=== PATIENT | male | born 1945 ===

== ENCOUNTER 2018-01-04 06:47 | Day surgery (SDC) | payer MEDICARE, OTHER ==
--- NOTE | 2018-01-03 16:41 | Pre-Procedure Note/Attestation ---
Pre-Procedure Note/Attestation Complete Prior to Procedure Planned Procedure: right Procedure Narrative: 1. CATARACT EXTRACTION WITH PHACO AND PC IOL IMPLANTATION, RIGHT EYE. 2. LIMBAL RELAXING INCISION, RIGHT EYE. 3.MALYUGIN RING INSERTION, RIGHT EYE FOR FLOPPY IRIS SYNDROME. 4.COMPLEX CATARACT , RIGHT EYE Indications for Procedure Pre-Operative Diagnosis: 1. CATARACT (AGE RELATED NUCLEAR) ,RIGHT EYE. 2.ASTIGMATISM , RIGHT EYE. 3. FLOPPY IRIS SYNDROME, RIGHT EYE 4. COMPLEX CATARACT , RIGHT EYE. Attestation I attest that I discussed the nature of the procedure; its benefits; risks and complications; and alternatives (and the risks and benefits of such alternatives ), prior to the procedure, with the patient (or the patient's legal cash applications representative). I attest that, if there was a reasonable possibility of needing a blood transfusion, the patient (or the patient's legal cash applications representative) was given the [facility] standardized written summary, pursuant to the Ye Coram Blood Safety Act ([place] Health and Safety Code # 1645, as amended). I attest that I re-evaluated the patient just prior to the surgery and that there has been no change in the patient's H&P, except as documented below: Neftaly Hummel MD January 03, 2018 16:41
[2018-01-04] VITALS (11 sets, daily range): BP systolic 143–150; BP diastolic 76–92
[~2018-01-04] VITALS: Ht 172.7 cm; Wt 88.5 kg
[~2018-01-04 06:47] MED LIST: acetaZOLAMIDE 125mg tab ORAL ONE
[2018-01-04] MEDS ORDERED: Dexamethasone 4mg/ml vial ONE (07:15)
[2018-01-04] MEDS ORDERED: Povidone-Iodine 5% opth solution ONE (07:15)
[2018-01-04] MEDS ORDERED: BSS 15ml BTL ONE (07:15)
[2018-01-04] MEDS ORDERED: EPINEPHrine 1mg/1ml Amp ONE (07:15)
[2018-01-04] MEDS ORDERED: Lidocaine 1% MPF 10mg/ml 5ml ONE (07:15)
[2018-01-04] MEDS ORDERED: BSS 500ml btl ONE (07:15)
[2018-01-04] MEDS ORDERED: Sodium Hyaluronate 10 mg/ml 0.85ml ONE (07:16)
[2018-01-04] MEDS ORDERED: Tropicamide 1% Opth 15ml Soln ONE (07:28)
[2018-01-04] MEDS: Diclofenac Sod 0.1% Op Soln RIGHT EYE SCH ×2 (07:31→07:40)
[2018-01-04] MEDS: Akten 3.5% 1ml Btl RIGHT EYE SCH ×2 (07:31→07:39)
[2018-01-04] MEDS: Phenylephrine 10% Opth Soln 5ml RIGHT EYE SCH ×2 (07:32→07:40)
[2018-01-04] MEDS: Vigamox Opth Soln 3ml RIGHT EYE SCH ×2 (07:32→07:40)
[2018-01-04] MEDS: Tropicamide 1% Opth 15ml Soln RIGHT EYE SCH ×2 (07:32→07:40)
[2018-01-04] MEDS ORDERED: ASPIR 8181 MG ORAL (07:39)
[2018-01-04] MEDS ORDERED: fentaNYL 100 mcg/2 mL IV ONE (07:42)
[2018-01-04] MEDS ORDERED: Midazolam 2mg/2ml Inj ONE (07:42)
[2018-01-04] MEDS ORDERED: Sterile Water Irrig 1000ml IRRIG ONE (08:00)
[2018-01-04] MEDS ORDERED: NS Irrig 1000ml ONE (08:00)
[2018-01-04] MEDS ORDERED: Propofol 200mg/20ml IV ONE (08:00)
[2018-01-04] MEDS ORDERED: LR 1000ml ONE (08:00)
[2018-01-04] MEDS ORDERED: LR 1000ml 1,000 ML IVLG SCH (08:49)
--- NOTE | 2018-01-04 08:49 | Anethesia Preoperative Eval ---
Anesthesia Pre-op PMH/ROS General Date of Evaluation: January 04, 2018 Time of Evaluation: 08:15 Anesthesiologist: Kim ASA Score: ASA 2 Mallampati Score Class I : Soft palate, uvula, fauces, pillars visible Class II: Soft palate, uvula, fauces visible Class III: Soft palate, base of uvula visible Class IV: Only hard plate visible Mallampati Classification: Class II Surgeon: Estephanie Diagnosis: R eye cataract Surgical Procedure: R eye cataract exraction Anesthesia History: none Social History: current smoker Family History: no anesthesia problems Allergies: Coded Allergies: No Known Allergies (Unverified , 01/03/18) Medications: see eMAR Past Medical History Cardiovascular: Reports: HTN; Denies: CAD, [place], valve dz, arrhythmia, other Pulmonary: Reports: COPD - mild; Denies: asthma, TAMMI, other Gastrointestinal/Genitourinary: Reports: GERD; Denies: CRI, ESRD, other Neurologic/Psychiatric: Denies: dementia, CVA, depression/anxiety, TIA, other Endocrine: Denies: DM, hypothyroidism, steroids, other HEENT: Reports: cataract (L), cataract (R); Denies: glaucoma, [place] (L), [place] (R), other Hematology/Immune: Denies: anemia, DVT, bleeding disorder, other Musculoskeletal/Integumentary: Reports: DJD, other - eczema; Denies: OA, RA, DDD, edema PMH Narrative: as above PSxH Narrative: none Anesthesia Pre-op Phys. Exam Physician Exam Last Vital Signs Date Time Temp Pulse Resp B/P (MAP) Pulse Ox O2 Delivery O2 Flow Rate FiO2 01/04/18 07:40 96.9 56 20 149/82 98 Room Air 96.9 Constitutional: NAD Neurologic: CN 2-12 intact Cardiovascular: RRR, no M/R/G Respiratory: CTA Gastrointestinal: S/NT/ND Airway Exam Mallampati Score: Class II MO: full Neck: stiff ROM: limited Teeth: missing Dentures: upper, lower Anesthesia Pre-op A/P Labs see chart Studies Pre-op Studies: EKG - SR Risk Assessment & Plan Assessment: ASA 2 Plan: Shivam Calderon MD January 04, 2018 08:49
[2018-01-04] MEDS ORDERED: fentaNYL 100 mcg/2 mL IV PRN (09:00)
[2018-01-04] MEDS ORDERED: DiphenhydrAMINE 50mg/ml Inj IVP PRN (09:00)
--- NOTE | 2018-01-04 09:17 | Discharge Summary ---
Discharge Summary Discharge Summary Discharge Summary DATE OF ADMISSION: 01/04/2018 DATE OF DISCHARGE: 01/04/2018 REASON FOR HOSPITALIZATION: 1- Cataract right eye 2- Astigmatism, right eye SURGERY PERFORMED: 1- Cataract extraction with phaco and PC IOL implantation, right eye 2- LRI, right eye 3- malyugin ring insertion CONDITION IN THE HOSPITAL:The patient tolerated the surgery without complications. DISCHARGE CONDITION: The patient was stable at discharge. DISCHARGE MEDICATIONS: 1. Vigamox eye drops one drop q.i.d, OD 2. Prednisolone one drop q.i.d, OD 3. Prolensa one drop qd, OD POSTOPERATIVE ORDERS: The patient has to rest at home. No bending, No lifting, No watching Television tonight. POSTOPERATIVE FOLLOW UP: The patient will be followed in my office tomorrow morning at 7 o'clock. Neftaly Hummel MD January 04, 2018 09:17
--- NOTE | 2018-01-04 09:22 | Brief Operative Note ---
Immediate Post Operative Note Operative Note Chief Complaint: Blurry vision, difficulty reading and driving, right eye Pre-op Diagnosis: 1. CATARACT (AGE RELATED NUCLEAR) ,RIGHT EYE. 2.ASTIGMATISM , RIGHT EYE. 3. FLOPPY IRIS SYNDROME, RIGHT EYE 4. COMPLEX CATARACT , RIGHT EYE. Procedure: 1- Cataract extraction with phaco and PC IOL implantation, right eye 2- Limbal relaxing incision ( LR I ), right eye 3- Malyugin ring insertion, complex cataract, right eye. Post-op Diagnosis: same as pre-op Surgeon: Neftaly Hummel MD Drop Man: None Additional Surgeons: None Anesthesiologist: Dr Alvarez Anesthesia: MAC Specimen: none Complications: none Condition: stable Fluids: 500ml Estimated Blood Loss: none Drains: none Implant(s) used?: Yes - Monofocal PC IOL implanted in the right eye without complication Neftaly Hummel MD January 04, 2018 09:22
[2018-01-04] MEDS ORDERED: acetaZOLAMIDE 125mg tab ONE (09:26)
--- NOTE | 2018-01-04 09:47 | Immediate Post-Op Evaluation ---
Immediate Post-Op Evalulation Immediate Post-Op Evalulation Procedure: R eye cataract extraction with IOL Date of Evaluation: January 04, 2018 Time of Evaluation: 09:31 IV Fluids: 400 Blood Products: none Estimated Blood Loss: none Urinary Output: none Blood Pressure Systolic: 142 Blood Pressure Diastolic: 72 Pulse Rate: 64 Respiratory Rate: 20 O2 Sat by Pulse Oximetry: 99 Temperature (Fahrenheit): 97.7 Pain Score (1-10): 1 Nausea: No Vomiting: No Complications none Patient Status: awake, patent, none Hydration Status: adequate Shivam Alvarez MD January 04, 2018 09:47
--- NOTE | 2018-01-04 10:42 | 48 Hour Post Anesthesia Eval ---
Post Anesthesia Evaluation Procedure: R eye cataract extraction with IOL Date of Evaluation: January 04, 2018 Time of Evaluation: 10:41 Blood Pressure Systolic: 148 0: 76 Pulse Rate: 68 Respiratory Rate: 18 Temperature (Fahrenheit): 98.1 O2 Sat by Pulse Oximetry: 99 Airway: patent Nausea: No Vomiting: No Pain Intensity: 1 Hydration Status: adequate Cardiopulmonary Status: stable Mental Status/LOC: patient returned to baseline Follow-up Care/Observations: n/a Post-Anesthesia Complications: none Follow-up care needed: ready to discharge Shivam Alvarez MD January 04, 2018 10:42
--- NOTE | 2018-01-05 06:32 | Operative Note - Dictated ---
DATE OF OPERATION: 01/04/2018 FACILITY: [facility]. SURGEON: Neftaly Hummel M.D. CONSTRUCTION SAFETY CONSULTANT: None. ANESTHESIOLOGIST: Shivam Alvarez M.D. ANESTHESIA: Monitored anesthesia care (MAC). PREOPERATIVE DIAGNOSES: 1. Cataract, right eye. 2. Astigmatism, right eye. 3. Floppy iris syndrome. 4. Complex cataract. POSTOPERATIVE DIAGNOSES: 1. Cataract, right eye. 2. Astigmatism, right eye. 3. Floppy iris syndrome. 4. Complex cataract. SURGERY PERFORMED: 1. Cataract extraction with phacoemulsification and posterior chamber intraocular lens implantation in the right eye. 2. Limbal relaxing incision (LRI) right eye. 3. Insertion of Malyugin ring for treatment of complex cataract. 4. Vision blue was used for treatment of complex cataract. INDICATION FOR SURGERY: The patient is a 72-year-old gentleman with history of osteoarthritis and BPH (benign prostatic hypertrophy) and . He takes medication including Flomax, Celebrex, Naprosyn, aspirin 81 mg. He is not allergic to any medications. He is a smoker and he drinks alcohol. He is complaining of blurry vision in the right eye. Examination of the right eye, the cornea is clear. Anterior chamber is clean and quiet, but very shallow. Pupillary reflex is normal. There is no RAPD. There is 4+ nuclear sclerosis and 2+ cortical cataract. Funduscopy showed normal optic disk, normal macula, and periphery retina is flat. The patient has hyperopia in this eye. To improve his vision in the right eye, the cataract has to be removed and posterior chamber intraocular lens has to be implanted. The astigmatism has to be addressed as well. INFORMED CONSENT: The nature of the surgery, risks, benefits, alternatives, and potential complications were explained all in detail to the patient. The potential complications including, but not limited to, bleeding, infection, posterior capsular rupture, lens subluxation, flat anterior chamber, iris prolapse, uveitis, corneal edema, macular edema, endophthalmitis, retinal detachment, loss of vision, and even loss of the eye were all explained in detail to the patient. The patient voiced understanding and accepted all the complications. The alternatives including accommodating lens, multifocal lens, toric lens, and conventional cataract surgery with limbal relaxing incision (LRI) for treatment of astigmatism all were explained to the patient in detail, who voiced understanding and agreed to all the complications. The patient elected to have only conventional cataract surgery plus limbal relaxing incision in the right eye. Then, he signed the consent form, which is in the chart. DESCRIPTION OF SURGERY AND FINDINGS: Following that, the patient was taken to the operation room in a stable condition. Lidocaine gel, Akten 3.5% were applied to the conjunctiva of the right eye. IV sedation was given by the anesthesiologist, Dr. Alvarez. After adequate anesthesia and sedation had been achieved, the right eye was prepped and draped in a sterile fashion for intraocular surgery. Following that, a speculum was placed in the right eye. Before the patient was taken to the operation room, the cornea was marked at 180 and 90 meridian. In the operation room, using a corneal marker and marking pen, the steep meridian of the cornea was marked. Following that, using a jose knife with 600 micron blade, two parallel incisions were placed on the steep meridian of the cornea to treat the astigmatism. Following that, using a Super Sharp knife, a clear corneal side port was created. A 1% lidocaine without preservative (MPF) was injected into the anterior chamber. Viscoelastic agent, Healon was injected into the anterior chamber. Following that, using a 2.8 mm keratome clear corneal temporal keratotomy was performed. Following that, a 7 mm Malyugin ring was inserted into the anterior chamber. The coils of the Malyugin ring were engaged with the sphincter and a jose-shaped space was created for safe phacoemulsification. Following that, Vision Blue was injected under the viscoelastic agent to stain the anterior capsule of the lens. Following that, a clear fresh viscoelastic agent, Healon was injected into the anterior chamber again. An anterior capsulotomy in the fashion of capsulorrhexis was performed under viscoelastic agent beautifully. Following that, all the viscoelastic agent was removed from the anterior chamber. Following that, with balanced salt solution, hydrodissection and hydrodelineation was performed and the nucleus was freed. Following that, the clear fresh viscoelastic agent was injected into the anterior chamber to protect the endothelium of the cornea. Following that, using a phacoemulsification machine in the fashion of horizontal chop, the nucleus was removed in toto. Following that, using irrigation and aspiration unit, cortical material was removed from the capsular bag and the capsular bag was polished. Following that, the capsular bag was filled with viscoelastic agent, Healon. Following that, a +27 diopter PCB00 foldable IOL with serial number [id number] was inserted into the capsular bag. Using a Sinskey hook, the lens was manipulated within the proper position. Following that, all viscoelastic agent was removed from the anterior and posterior part of the lens and the anterior chamber was filled with balanced salt solution. Following that, the wound was hydrated with balanced salt solution. The wound was checked for leakage and there was no leakage. Vigamox eye drops were applied to the conjunctiva, right eye. The patient tolerated the surgery without complications. At the end of the surgery, the eye was patched with a clear, sterile fenestrated shield. Following that, the patient was transferred to the recovery room. In the recovery room, 125 mg Diamox was given by mouth stat. Postoperative orders and directions were given to the patient. The patient will be discharged home upon stabilization. The patient will be followed in my office tomorrow morning at 9 o'clock. Neftaly Hummel M.D. DR: JAMEY JOB#: [id number] CC:
== END 2018-01-04 11:10 | disposition home or self-care (01) ==
LOC: SUR 06:47
DX: H25.11 Age-related nuclear cataract, right eye (principal); H25.011 Cortical age-related cataract, right eye; H52.201 Unspecified astigmatism, right eye; H21.81 Floppy iris syndrome; F17.200 Nicotine dependence, unspecified, uncomplicated; I10 Essential (primary) hypertension; M54.12 Radiculopathy, cervical region; M19.90 Unspecified osteoarthritis, unspecified site; J44.9 Chronic obstructive pulmonary disease, unspecified; K21.9 Gastro-esophageal reflux disease without esophagitis
CPT/HCPCS: 65772; 66982; J0171; J1100; J2250; J2704; J3010; J7120; V2632; 94003; 94150

== ENCOUNTER 2018-01-18 06:18 | Day surgery (SDC) | payer MEDICARE, OTHER ==
--- NOTE | 2018-01-17 13:40 | Pre-Procedure Note/Attestation ---
Pre-Procedure Note/Attestation Complete Prior to Procedure Planned Procedure: left Procedure Narrative: 1. CATARACT EXTRACTION WITH PHACO AND PC IOL IMPLANTATION, LEFT EYE. 2. LIMBAL RELAXING INCISION, LEFT EYE. 3.MALYUGIN RING INSERTION, LEFT EYE FOR FLOPPY IRIS SYNDROME. 4.COMPLEX CATARACT , LEFT EYE Indications for Procedure Pre-Operative Diagnosis: 1. CATARACT (AGE RELATED NUCLEAR) , LEFT EYE. 2.ASTIGMATISM , LEFT EYE. 3. FLOPPY IRIS SYNDROME, LEFT EYE 4. COMPLEX CATARACT , LEFT EYE. Attestation I attest that I discussed the nature of the procedure; its benefits; risks and complications; and alternatives (and the risks and benefits of such alternatives ), prior to the procedure, with the patient (or the patient's legal phlebotomy services representative). I attest that, if there was a reasonable possibility of needing a blood transfusion, the patient (or the patient's legal phlebotomy services representative) was given the [facility] standardized written summary, pursuant to the Ye Maritza Blood Safety Act ([place] Health and Safety Code # 1645, as amended). I attest that I re-evaluated the patient just prior to the surgery and that there has been no change in the patient's H&P, except as documented below: Neftaly Hummel MD Jan 17, 2018 13:40
[~2018-01-18] VITALS: Ht 172.7 cm; Wt 88.5 kg
[2018-01-18] VITALS (7 sets, daily range): BP systolic 129–163; BP diastolic 71–88
[~2018-01-18 06:18] MED LIST changes: +ASPIR 8181 MG ORAL
--- NOTE | 2018-01-18 06:24 | Anethesia Preoperative Eval ---
Anesthesia Pre-op PMH/ROS General Date of Evaluation: Jan 18, 2018 Time of Evaluation: 06:23 Anesthesiologist: parveen ASA Score: ASA 3 Mallampati Score Class I : Soft palate, uvula, fauces, pillars visible Class II: Soft palate, uvula, fauces visible Class III: Soft palate, base of uvula visible Class IV: Only hard plate visible Mallampati Classification: Class II Surgeon: deborah Diagnosis: left eye cataract Surgical Procedure: left eye cataract extraction w/ iol Anesthesia History: none Social History: current smoker Family History: no anesthesia problems Allergies: Coded Allergies: No Known Allergies (Unverified , 01/03/18) Medications: see eMAR Past Medical History Gastrointestinal/Genitourinary: Reports: other - frequent urination HEENT: Reports: cataract (L), cataract (R) Musculoskeletal/Integumentary: Reports: OA Anesthesia Pre-op Phys. Exam Physician Exam Last Vital Signs Date Time Temp Pulse Resp B/P (MAP) Pulse Ox O2 Delivery O2 Flow Rate FiO2 01/18/18 07:24 97.6 53 18 129/71 98 Room Air 97.6 Constitutional: NAD Neurologic: CN 2-12 intact Cardiovascular: RRR Respiratory: CTA Gastrointestinal: S/NT/ND Airway Exam Mallampati Score: Class II MO: limited Neck: short TMD: 2fb ROM: limited Anesthesia Pre-op A/P Risk Assessment & Plan Assessment: asa3 Plan: mac Status Change Before Surgery: Yes - patient drank coffee with cream at 05:30 ( 3 hours) prior to surgery, patient warned of risks. patient desires to proceed with procedure. surgeon is aware. Maggi Ruano MD Jan 18, 2018 06:24
[2018-01-18] MEDS ORDERED: DiphenhydrAMINE 50mg/ml Inj IVP PRN (06:30)
[2018-01-18] MEDS ORDERED: fentaNYL 100 mcg/2 mL IV PRN (06:30)
[2018-01-18] MEDS ORDERED: Atropine Inj 1mg/10ml Syr IV PRN (06:30)
[2018-01-18] MEDS ORDERED: Midazolam 2mg/2ml Inj IVP PRN (06:30)
[2018-01-18] MEDS ORDERED: Dexamethasone 4mg/ml vial ONE (07:06)
[2018-01-18] MEDS ORDERED: Sodium Hyaluronate 10 mg/ml 0.85ml ONE ×2 (07:06→09:44)
[2018-01-18] MEDS ORDERED: Carbachol 0.01% Op Soln 1.5ml vial ONE (07:06)
[2018-01-18] MEDS ORDERED: BSS 15ml BTL ONE (07:06)
[2018-01-18] MEDS ORDERED: Povidone-Iodine 5% opth solution ONE (07:06)
[2018-01-18] MEDS ORDERED: BSS 500ml btl ONE ×2 (07:06→09:35)
[2018-01-18] MEDS ORDERED: Lidocaine 1% MPF 10mg/ml 5ml ONE (07:06)
[2018-01-18] MEDS ORDERED: EPINEPHrine 1mg/1ml Amp ONE (07:12)
[2018-01-18] MEDS: Vigamox Opth Soln 3ml LEFT EYE SCH ×3 (07:16→07:39)
[2018-01-18] MEDS: Tropicamide 1% Opth 15ml Soln LEFT EYE SCH ×3 (07:16→07:39)
[2018-01-18] MEDS: Phenylephrine 10% Opth Soln 5ml LEFT EYE SCH ×3 (07:16→07:39)
[2018-01-18] MEDS: Diclofenac Sod 0.1% Op Soln LEFT EYE SCH ×3 (07:17→07:39)
[2018-01-18] MEDS: Akten 3.5% 1ml Btl LEFT EYE SCH ×3 (07:17→07:39)
[2018-01-18] MEDS ORDERED: LR 1000ml ONE (08:30)
[2018-01-18] MEDS ORDERED: fentaNYL 100 mcg/2 mL IV ONE (08:30)
--- NOTE | 2018-01-18 09:36 | Discharge Summary ---
Discharge Summary Discharge Summary Discharge Summary DATE OF ADMISSION: 01/18/2018 DATE OF DISCHARGE: 01/18/2018 REASON FOR HOSPITALIZATION: 1- Cataract extractio, left eye 2- LRI, right eye 3 - Complex cataract removed SURGERY PERFORMED: 1- cataract extraction with phac, left eye 2- Limbal Relaxing incision ( LRI ), left eye 3- Complex cataract removal CONDITION IN THE HOSPITAL:The patient tolerated the surgery without complications. DISCHARGE CONDITION: The patient was stable at discharge. DISCHARGE MEDICATIONS: 1. Vigamox eye drops one drop q.i.d, OS 2. Prednisolone one drop q.i.d, OS 3. Prolensa one drop QD, OS POSTOPERATIVE ORDERS: The patient has to rest at home. No bending, No lifting, No watching Television tonight. POSTOPERATIVE FOLLOW UP: The patient will be followed in my office tomorrow morning at 7 o'clock. Neftaly Hummel MD Jan 18, 2018 09:36
--- NOTE | 2018-01-18 09:41 | Brief Operative Note ---
Immediate Post Operative Note Operative Note Chief Complaint: Blurry vision, difficulty driving,and reading, left eye Pre-op Diagnosis: 1. CATARACT (AGE RELATED NUCLEAR) , LEFT EYE. 2.ASTIGMATISM , LEFT EYE. 3. FLOPPY IRIS SYNDROME, LEFT EYE 4. COMPLEX CATARACT , LEFT EYE. Procedure: 1- cataract extraction with phaco and PC IOL implantation, left eye 2- Limbal relaxing incision ( LRI ), left eye 3- Malyugin ring insertion for treatment floppy iris syndrome. 4- Complex cataract extraction, right eye. Post-op Diagnosis: same as pre-op Surgeon: Neftaly Hummel MD. Pig Machine Operator Helper: None Additional Surgeons: None Anesthesiologist: Dr. spear Anesthesia: MAC Specimen: none Complications: none Condition: stable Fluids: %00ml Estimated Blood Loss: none Drains: none Implant(s) used?: Yes - Monofocal PC IOL implanted in the left eye without complication Neftaly Hummel MD Jan 18, 2018 09:41
--- NOTE | 2018-01-18 09:52 | Immediate Post-Op Evaluation ---
Immediate Post-Op Evalulation Immediate Post-Op Evalulation Procedure: left cataract extraction w/iol Date of Evaluation: Jan 18, 2018 Time of Evaluation: 09:42 IV Fluids: 450ml lr Blood Products: none Estimated Blood Loss: negligible Blood Pressure Systolic: 166 Blood Pressure Diastolic: 84 Pulse Rate: 58 Respiratory Rate: 18 O2 Sat by Pulse Oximetry: 100 Temperature (Fahrenheit): 97.8 Pain Score (1-10): 0 Nausea: No Vomiting: No Complications none Patient Status: awake, reacts, patent Hydration Status: adequate Drug: Maggi Bowles MD Jan 18, 2018 09:52
[2018-01-18] MEDS ORDERED: acetaZOLAMIDE 125mg tab ONE (09:53)
--- NOTE | 2018-01-18 10:14 | 48 Hour Post Anesthesia Eval ---
Post Anesthesia Evaluation Procedure: left cataract extraction w/iol Date of Evaluation: Jan 18, 2018 Time of Evaluation: 09:44 Blood Pressure Systolic: 166 0: 77 Pulse Rate: 56 Respiratory Rate: 18 Temperature (Fahrenheit): 97.8 O2 Sat by Pulse Oximetry: 100 Airway: patent Nausea: No Vomiting: No Pain Intensity: 0 Hydration Status: adequate Cardiopulmonary Status: stable Mental Status/LOC: patient returned to baseline Post-Anesthesia Complications: none Follow-up care needed: N/A Maggi Ruano MD Jan 18, 2018 10:14
--- NOTE | 2018-01-18 14:15 | Pre-op HX & Phy Repo 2 SIG ---
DATE OF ADMISSION: 01/18/2018 PRESURGICAL INTERNAL MEDICINE HISTORY AND PHYSICAL DATE OF EVALUATION: 01/18/2018. REASON FOR EVALUATION: I was asked by Dr. Neftaly Hummel, to see this 72-year-old male, who going for elective surgery on the left eye. The patient has a cataract, left eye. Please see Ophthalmology History and Physical by Dr. Neftaly Hummel. The patient was evaluated. Chart was reviewed. PAST MEDICAL HISTORY AND REVIEW OF SYSTEMS: Remarkable for history of hypertension, not treated, occasional bronchial asthma, not treated, benign prostatic hypertrophy, not treated. The patient denies history of stroke, seizures, or heart attack. No chest pain or palpitation. No history of GI bleeding, abdominal pain, or hepatitis. No history of renal failure. Denies history of anemia or thyroid problem. PAST SURGICAL HISTORY: None. FAMILY HISTORY: Mother from complication of diabetes and father of prostate cancer. HABITS: The patient smoked for 40 years approximately one pack a day. Denies alcohol or street drug use. ALLERGIES: Not known. PRESENT MEDICATIONS: Include eye drops and baby aspirin 81 mg occasionally. PHYSICAL EXAMINATION: GENERAL: The patient is alert, well-developed, well-nourished male in his 70s. No acute distress. VITAL SIGNS: Blood pressure 129/71, temperature 97, pulse 53 and regular. No ectopy. The O2 saturation 98% on room air. SKIN: Warm, dry. No rashes. No open wounds. LYMPHATICS: Lymph nodes not enlarged. HEENT: Head, normocephalic and atraumatic. Ears, clear. Eyes, full description per Dr. Neftaly Hummel. Mouth, clear and moist. Dentures, upper and lower. NECK: Supple. No jugular venous distention. Carotids artery +2. Trachea midline. CHEST: No deformity or asymmetry. LUNGS: Clear to auscultation and percussion. No rales or rhonchi. HEART: Sinus bradycardia. No murmur. No S3 or S4. ABDOMEN: Soft, benign. Liver and spleen not enlarged. No rebound. EXTREMITIES: No varicose vein. No CVA tenderness. No calf tenderness. No edema. GENITOURINARY TRACT: CVA nontender. The patient has increased frequency of urination. NERVOUS SYSTEM: No tremor. No nystagmus. DIAGNOSTIC DATA: ECG done December 17, 2017 showed sinus rhythm, 61 per minute, in normal limits. Laboratory pending. The patient last time was before midnight. IMPRESSION: 1. Cataract, left eye, dense. 2. Benign prostatic hypertrophy. 3. COPD. 4. Hypertension, not treated. PLAN: Cataract extraction, left eye with intraocular lens implant per Dr. Neftaly Hummel. CONCLUSION: The patient's vital signs stable. EKG is normal. Laboratory work pending. The patient did not eat or drink from last night. The patient's condition optimized for surgery. Thank you very much, Dr. Hummel, for privilege to participate in presurgical care of this interesting patient. Mp Daniel M.D. DR: MARGARITA JOB#: [id number] CC:
--- NOTE | 2018-01-19 05:00 | Operative Note - Dictated ---
DATE OF OPERATION: 01/18/2018 NOTE: Left and right eye discrepancy in preop/postop diagnoses. FACILITY: [facility]. SURGEON: Neftaly Hummel M.D. FREELANCE INTERPRETER/TRANSLATOR: None. ANESTHESIOLOGIST: Maggi Miranda M.D. ANESTHESIA: Monitored anesthesia care (MAC). PREOPERATIVE DIAGNOSES: 1. Cataract, eye. 2. 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 POSTOPERATIVE DIAGNOSES: 1. Cataract, eye. 2. 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 SURGERY PERFORMED: 1. Cataract extraction with phacoemulsification and posterior chamber intraocular lens implantation in the left eye. 2. Limbal relaxing incision (LRI), left eye. 3. Insertion of Malyugin ring for treatment of complex cataract. 4. VisionBlue was used for treatment of complex cataract. INDICATION FOR SURGERY: The patient is a 72-year-old gentleman with history of osteoarthritis, benign prostatic hypertrophy, and hypercholesterolemia. He takes medications including Flomax, Celebrex, Naprosyn, aspirin 81 mg, and simvastatin. He is not allergic to medication. He is a smoker and drinks alcohol. He has had cataract surgery in the right eye two weeks ago and . Now, he is complaining of blurry vision in the left eye. On examination of the left eye, the cornea is clear. Anterior chamber is clean and quiet. Anterior chamber is shallow. Pupillary reflex is normal. There is no RAPD. There is 4+ nuclear sclerosis and 2+ cortical cataract in the left eye. Funduscopy shows normal optic disc, normal macula, and periphery retina is flat. The patient is severely hyperoxic and he had hyperopia. To improve his vision in the left eye, the cataract has to be removed and posterior chamber intraocular lens has to be implanted and astigmatism has to be addressed as well. INFORMED CONSENT: The nature of the surgery, risks, benefits, alternatives, and potential complications were explained all in detail to the patient. The potential complications including, but not limited to, bleeding, infection, posterior capsular rupture, lens subluxation, flat anterior chamber, iris prolapse, uveitis, corneal edema, macular edema, endophthalmitis, retinal detachment, loss of vision, and even loss of the eye were all explained in detail to the patient. The patient voiced understanding and accepted all the complications. The alternatives including accommodating lens, multifocal lens, toric lens, and conventional cataract surgery with limbal relaxing incision (LRI) for treatment of astigmatism all were explained to the patient in detail, who voiced understanding and agreed to all the complications. The patient elected to have only conventional cataract surgery plus limbal relaxing incision in the left eye. Then, he signed the consent form, which is in the chart. DESCRIPTION OF SURGERY AND FINDINGS: Following that, the patient was taken to the operation room in a stable condition. Lidocaine gel, Akten 3.5% were applied to the conjunctiva of the left eye. IV sedation was given by the anesthesiologist, Dr. Miranda. After adequate anesthesia and sedation had been achieved, the left eye was prepped and draped in a sterile fashion for intraocular surgery. Following that, a speculum was placed in the left eye. Before the patient was taken to the operation room, the cornea was marked at 180 and 90 meridian. In the operation room, using a corneal marker and marking pen, the steep meridian of the cornea was marked. Following that, using a jose knife with 600 micron blade, two parallel incisions were placed on the steep meridian of the cornea to treat the astigmatism. Following that, using a Super Sharp knife, a clear corneal side port was created. A 1% lidocaine without preservative (MPF) was injected into the anterior chamber. Viscoelastic agent, Healon was injected into the anterior chamber. Following that, using a 2.8 mm keratome, clear corneal temporal keratotomy was performed. Following that, a 7 mm Malyugin ring was inserted into the anterior chamber. The coils of the Malyugin ring were engaged with the sphincter and a jose-shaped space was created for safe phacoemulsification. Following that, VisionBlue was injected under the viscoelastic agent to stain the anterior capsule of the lens. Following that, a clear, fresh viscoelastic agent, Healon was injected into the anterior chamber again. Under the viscoelastic agent, an anterior capsulotomy was performed in the fashion of capsulorrhexis beautifully. Following that, all the viscoelastic agent was removed from the anterior chamber. Following that, with balanced salt solution, hydrodissection and hydrodelineation was performed and the nucleus was freed. Following that, a clear, fresh viscoelastic agent was injected into the anterior chamber to protect the endothelium of the cornea. Following that, using a phacoemulsification machine in the fashion of horizontal chop, the nucleus was removed in toto. Following that, using irrigation aspiration unit, cortical material was removed from the capsular bag and the capsular bag was polished. Following that, the capsular bag was filled with viscoelastic agent, Healon. Following that, a +25 diopter PCB00 foldable lens with serial number was inserted into the capsular bag. Using a Sinskey hook, the lens was manipulated within the proper position. Following that, the viscoelastic agent was removed from the anterior and posterior part of the lens. Following that, the anterior chamber was filled with balanced salt solution and the wounds were hydrated with balanced salt solution. The wound was checked for leakage and there was no leakage. The patient tolerated the surgery without complications. At the end of the surgery, Vigamox eye drops was applied to the conjunctiva of the left eye. At the end of the surgery, the eye was patched with a clear sterile fenestrated shield. Following that, the patient was taken to the recovery room. In the recovery room, 125 mg Diamox was given by mouth stat. Postoperative orders and directions were given to the patient. The patient will be discharged home upon stabilization. The patient will be followed in my office tomorrow morning. Neftaly Hummel M.D. DR: MICHELLE JOB#: [id number] CC:
== END 2018-01-18 11:25 | disposition home or self-care (01) ==
LOC: SUR 06:18
DX: H25.12 Age-related nuclear cataract, left eye (principal); H52.202 Unspecified astigmatism, left eye; H21.81 Floppy iris syndrome; M19.90 Unspecified osteoarthritis, unspecified site; N40.0 Benign prostatic hyperplasia without lower urinary tract symptoms; E78.00 Pure hypercholesterolemia, unspecified; Z79.82 Long term (current) use of aspirin; I10 Essential (primary) hypertension; Z83.3 Family history of diabetes mellitus; Z80.42 Family history of malignant neoplasm of prostate; J44.9 Chronic obstructive pulmonary disease, unspecified; F17.210 Nicotine dependence, cigarettes, uncomplicated
CPT/HCPCS: 65772; 66982; J0171; J1100; J3010; J7120; V2632; 94003; 94150